=== PATIENT | female | born 1970 | race African-American/Black ===

== ENCOUNTER 2019-07-29 07:43 | Emergency (ER) | payer OTHER ==
[~2019-07-29] VITALS: Ht 170.2 cm; Wt 95.4 kg
[2019-07-29 07:52] VITALS: BP 157/113
== END 2019-07-29 08:35 | disposition home or self-care (01) ==
LOC: ER 07:43
DX: H00.011 Hordeolum externum right upper eyelid (principal); H00.11 Chalazion right upper eyelid; I10 Essential (primary) hypertension; F12.10 Cannabis abuse, uncomplicated
CPT/HCPCS: 99282

== ENCOUNTER 2021-10-16 10:55 | Emergency (ER) | payer MEDICAID, OTHER ==
[~2021-10-16] VITALS: Ht 172.7 cm; Wt 90.0 kg
[2021-10-16 10:56] VITALS: BP 166/104
[2021-10-16] MEDS ORDERED: ONDANSETRON 4MG ODT PO STA (10:59)
[2021-10-16] MEDS ORDERED: MAGNESIUM/ALUMINUM HYDROXIDE/SIMETHICONE 30ML UDC PO STA (10:59)
[2021-10-16] MEDS ORDERED: DICYCLOMINE 10 MG/5 ML ORAL SYR PO STA (10:59)
[2021-10-16] MEDS ORDERED: FAMOTIDINE 20MG TABLET PO ONE (11:00)
[2021-10-16 14:48] LABS: CHLORIDE 106 mEq/L (98-107)
[2021-10-16 14:54] LABS: BASOPHILS % 0.3 % (0.0-2.0); HEMATOCRIT. 42.2 % (36.0-48.0); HEMOGLOBIN. 14.3 g/dL (12.0-16.0); LYMPHOCYTES % 15.8 % (20.0-50.0); MEAN CORPUSCULAR HEMOGLOBIN 29.7 pg (28.0-32.0); MEAN CORPUSCULAR VOLUME 87.5 fL (81.0-99.0); MONOCYTES % 4.5 % (2.0-8.0); NEUTROPHILS % 79.4 % (40.0-76.0); PLATELET 247 x1000/uL (130-400); RED BLOOD CELL COUNT 4.82 mill/uL (4.2-5.4)
[2021-10-16] MEDS ORDERED: HALOPERIDOL LACTATE 5MG/ML VIAL IM ONE (16:15)
[2021-10-16 16:46] LABS: CLARITY URINE CLEAR (CLEAR); COLOR URINE YELLOW (YELLOW); KETONES URINE 2+ (NEGATIVE); LEUKOCYTE ESTERASE URINE NEGATIVE (NEGATIVE); NITRITE URINE NEGATIVE (NEGATIVE); OCCULT BLOOD URINE TRACE (NEGATIVE); PH URINE 5.5 (4.5-8.0); PROTEIN URINE 1+ (NEGATIVE); SPECIFIC GRAVITY URINE 1.035 (1.005-1.030); UROBILINOGEN URINE 0.2 E.U./dL (0.2-1.0)
[2021-10-16 18:53] LABS: HCG SCREEN NEGATIVE
== END 2021-10-16 17:25 | disposition left against medical advice (07) ==
LOC: ER 10:55
DX: R10.13 Epigastric pain (principal); F12.10 Cannabis abuse, uncomplicated; R11.10 Vomiting, unspecified; I10 Essential (primary) hypertension
CPT/HCPCS: 36415; 80053; 81003; 83690; 84703; 85025; 93005; 96372; 99284; J1630; Q0162

== ENCOUNTER 2023-02-09 10:21 | Inpatient (IN) | payer OTHER ==
[2023-02-09] VITALS (12 sets, daily range): BP systolic 130–159; BP diastolic 52–98; PULSE 57–79; RESP 14–21; TEMP 97.2–97.7
[~2023-02-09] VITALS: Ht 160 cm; Wt 88.5 kg
[2023-02-09] MEDS ORDERED: FAMOTIDINE 20MG/2ML VIAL IV ONE (10:45)
[2023-02-09] MEDS ORDERED: DIPHENHYDRAMINE 50MG/ML VIAL IV ONE (10:45)
[2023-02-09] MEDS ORDERED: METHYLPREDNISOLONE SOD SUCC 40MG VIAL IV ONE (10:45)
[2023-02-09] MEDS ORDERED: METHYLPREDNISOLONE SOD SUCC 125MG VIAL IV NR (10:50)
[2023-02-09 11:34] LABS: BASOPHILS % 0.9 % (0.0-2.0); EOSINOPHILS % 0.5 % (0.0-5.0); HEMATOCRIT. 39.2 % (36.0-48.0); HEMOGLOBIN. 13.3 g/dL (12.0-16.0); MEAN CORPUSCULAR HEMOGLOBIN 30.2 pg (28.0-32.0); MEAN CORPUSCULAR VOLUME 89.4 fL (81.0-99.0); MONOCYTES % 6.2 % (2.0-8.0); NEUTROPHILS % 62.4 % (40.0-76.0); RED BLOOD CELL COUNT 4.39 mill/uL (4.2-5.4); RED CELL DISTRIBUTION WIDTH 14.1 % (11.6-14.6)
[2023-02-09 11:36] LABS: PROTHROMBIN TIME 10.3 sec (9.6-11.0)
[2023-02-09 11:42] LABS: CHLORIDE 109 mEq/L (98-107)
[2023-02-09 12:00] LABS: MEAN PLATELET VOLUME 8.8 fl (7.4-10.4)
[2023-02-09 12:01] LABS: PLATELET 219 x1000/uL (130-400)
[2023-02-09] MEDS ORDERED: MAGNESIUM/ALUMINUM HYDROXIDE/SIMETHICONE 30ML UDC PO PRN (15:15)
[2023-02-09] MEDS ORDERED: IPRATROPIUM/ALBUTEROL 0.5-3(2.5)MG/3ML NEB HHN PRN (15:15)
[2023-02-09] MEDS ORDERED: DOCUSATE SODIUM 100MG CAPSULE PO PRN (15:15)
[2023-02-09] MEDS ORDERED: METHYLPREDNISOLONE SOD SUCC 125MG/2ML (ACT-O-VIAL) IV SCH (15:15)
[2023-02-09] MEDS ORDERED: GUAIFENESIN 200MG/10ML SUGAR FREE UDC PO PRN (15:15)
[2023-02-09] MEDS ORDERED: ONDANSETRON HCL 4MG/2ML INJ IV PRN (15:15)
[2023-02-09] MEDS ORDERED: ACETAMINOPHEN 325MG TABLET PO PRN (15:15)
[2023-02-09] MEDS ORDERED: CLONIDINE 0.1MG TABLET PO PRN (15:15)
[2023-02-09] MEDS ORDERED: HYDRALAZINE 20MG/ML VIAL IV PRN (15:30)
[2023-02-09] MEDS ORDERED: ENOXAPARIN 40MG/0.4ML SYR SUBCUT SCH (16:00)
[2023-02-09] MEDS ORDERED: DEXTROSE 50% WATER 50ML SYRINGE IV PRN (16:30)
[2023-02-09 17:18] LABS: CLARITY URINE CLEAR (CLEAR); COLOR URINE YELLOW (YELLOW); KETONES URINE NEGATIVE (NEGATIVE); LEUKOCYTE ESTERASE URINE NEGATIVE (NEGATIVE); NITRITE URINE NEGATIVE (NEGATIVE); OCCULT BLOOD URINE 2+ (NEGATIVE); PROTEIN URINE NEGATIVE (NEGATIVE); SPECIFIC GRAVITY URINE 1.017 (1.005-1.030); UROBILINOGEN URINE 0.2 E.U./dL (0.2-1.0)
[2023-02-09] MEDS ORDERED: RACEPINEPHRINE 2.25% 0.5ML NEB VIAL HHN PRN (17:30)
[2023-02-09 17:31] LABS: *AMPHETAMINES SCREEN URINE NEGATIVE (NEGATIVE); *BARBITURATES SCREEN URINE NEGATIVE (NEGATIVE); *BENZODIAZEPINES SCREEN URINE NEGATIVE (NEGATIVE); *COCAINE SCREEN URINE NEGATIVE (NEGATIVE); CANNABINOID URINE SCREEN PRESUMTIVE POSITIVE (NEGATIVE); METHADONE URINE SCREEN NEGATIVE (NEGATIVE); OPIATES URINE SCREEN NEGATIVE (NEGATIVE); PHENCYCLIDINE URINE SCREEN NEGATIVE (NEGATIVE)
[2023-02-09] MEDS: INSULIN LISPRO 100 UNITS/ML SUBCUT SCH ×2 (17:34→21:14)
[2023-02-09] MEDS: BLOOD SUGAR DIAGNOSTIC STRIP TEST SCH ×2 (17:34→21:15)
[2023-02-09] MEDS: METHYLPREDNISOLONE SOD SUCC 125MG VIAL IV SCH (21:14)
[2023-02-09] MEDS: ACETAMINOPHEN 325MG TABLET PO PRN (21:58)
[2023-02-10] VITALS (9 sets, daily range): BP systolic 128–144; BP diastolic 77–85; PULSE 59–69; RESP 11–41; TEMP 77.8–97.9; O2SAT 99
[2023-02-10 03:11] LABS: CREATINE KINASE 77 IU/L (26-192); CREATINE KINASE MB FRACTION < 1.0 ng/mL (0.5-3.6)
[2023-02-10] MEDS: INSULIN LISPRO 100 UNITS/ML SUBCUT SCH ×2 (08:00→12:28)
[2023-02-10] MEDS: BLOOD SUGAR DIAGNOSTIC STRIP TEST SCH ×2 (08:20→12:28)
[2023-02-10 08:26] LABS: BASOPHILS % 0.1 % (0.0-2.0); HEMATOCRIT. 38.6 % (36.0-48.0); HEMOGLOBIN. 13.2 g/dL (12.0-16.0); LYMPHOCYTES % 8.4 % (20.0-50.0); MEAN CORPUSCULAR HEMOGLOBIN 30.1 pg (28.0-32.0); MEAN CORPUSCULAR VOLUME 88.3 fL (81.0-99.0); MEAN PLATELET VOLUME 8.6 fl (7.4-10.4); MONOCYTES % 1.8 % (2.0-8.0); NEUTROPHILS % 89.7 % (40.0-76.0); PLATELET 261 x1000/uL (130-400); RED BLOOD CELL COUNT 4.37 mill/uL (4.2-5.4); RED CELL DISTRIBUTION WIDTH 13.8 % (11.6-14.6)
[2023-02-10 08:28] LABS: CHLORIDE 107 mEq/L (98-107)
[2023-02-10] MEDS: ACETAMINOPHEN 325MG TABLET PO PRN ×2 (08:43→13:22)
[2023-02-10] MEDS: METHYLPREDNISOLONE SOD SUCC 125MG VIAL IV SCH (08:44)
[2023-02-10 08:45] LABS: CREATINE KINASE 68 IU/L (26-192); CREATINE KINASE MB FRACTION < 1.0 ng/mL (0.5-3.6); HDL CHOLESTEROL 60 mg/dL (40-59); LDL CHOLESTEROL 110 mg/dL (5-100); T4 FREE 1.01 ng/dL (0.76-1.46)
[2023-02-10] MEDS ORDERED: PANTOPRAZOLE SODIUM 40 MG/VIAL IV SCH (09:00)
[2023-02-10] MEDS ORDERED: METHYLPREDNISOLONE SOD SUCC 40MG VIAL IV SCH (14:00)
== END 2023-02-10 15:42 | disposition home or self-care (01) | DRG 811 ==
LOC: ER 10:31 → 5EST 12:56 → EDBEDREQ 13:21 → EDBEDREQTM 13:21
PROVIDERS: ADMIT Internal Medicine; ATTEND Internal Medicine
PROC: 30233K1 Transfusion of Nonautologous Frozen Plasma into Peripheral Vein, Percutaneous Approach (ICD-10-PCS; principal; 2023-02-09)
DX: T78.3XXA Angioneurotic edema, initial encounter (principal); D84.1 Defects in the complement system; E66.9 Obesity, unspecified; I10 Essential (primary) hypertension; T46.4X5A Adverse effect of angiotensin-converting-enzyme inhibitors, initial encounter; Z68.34 Body mass index [BMI] 34.0-34.9, adult; X58.XXXA Exposure to other specified factors, initial encounter; Z83.3 Family history of diabetes mellitus; Z88.8 Allergy status to other drugs, medicaments and biological substances
CPT/HCPCS: 36415; 71045; 80053; 80061; 80305; 81003; 82550; 82553; 82962; 83036; 84439; 84443; 84484; 85025; 85651; 86850; 86900; 86927; 93005; 99291; C9113; J1200; J1650; J1815; J2920; J2930; J3490; P9017

== ENCOUNTER 2024-06-24 06:26 | Emergency (ER) | payer OTHER ==
[~2024-06-24] VITALS: Ht 170.2 cm; Wt 94.0 kg
[2024-06-24 06:41] VITALS: O2SAT 100
[2024-06-24] MEDS ORDERED: AMOX1TAB16 PO (07:18)
[2024-06-24 07:34] VITALS: BP 155/87; PULSE 74; RESP 18; TEMP 36.89184; O2SAT 100
== END 2024-06-24 11:24 | disposition home or self-care (01) ==
LOC: ER 06:26
DX: L03.213 Periorbital cellulitis (principal); I10 Essential (primary) hypertension; Z88.8 Allergy status to other drugs, medicaments and biological substances
CPT/HCPCS: 99283